=== PATIENT | male | born 1970 | race Caucasian/White ===

== ENCOUNTER 2021-04-25 19:40 | Inpatient (IN) ==
[2021-04-25] MEDS ORDERED: PIPERACILLIN/TAZOBACTAM 4.5 GM/120 ML BAG IV ONE (20:27)
[2021-04-25] MEDS ORDERED: PIPERACILL/TAZOBAC CONSULT ACTIVE PRN (20:27)
[2021-04-25] MEDS ORDERED: SODIUM CHLORIDE 0.9% 1000ML 1,000 ML IV STA (20:27)
[2021-04-25 20:47] LABS: Appearance Urine Clear (Clear); Bacteria Urine Automated Negative (Negative); Bilirubin Urine Negative (Negative); Blood Urine Trace (Negative); Cast Urine Automated 0 /lpf (0-5); Color Urine Yellow; Glucose Urine UA Negative (Negative); Ketones Urine 2+ (Negative); Leukocyte Esterase Urine 2+ (Negative); Nitrite Urine Negative (Negative); Protein Urine Negative (Negative); RBC Urine Automated 0-4 /hpf (0-4); Specific Gravity Urine 1.026 (1.000-1.030); Urobilinogen Urine Negative (Negative); pH Urine 5.5 (4.5-7.5)
[2021-04-25 20:58] LABS: Basophils # (auto) 0.03 K/uL (0-0.2); Basophils % (auto) 0.2 %; Eosinophils # (auto) 0.03 K/uL (0-0.5); Eosinophils % (auto) 0.2 %; Hematocrit (blood only) 41.9 % (42-52); Hemoglobin 14.5 g/dL (14.0-18.0); Immature Granulocytes # (auto) 0.09 K/uL (0.00-0.02); Immature Granulocytes % (auto) 0.5 %; Lymphocytes # (auto) 1.81 K/uL (1.2-3.4); Lymphocytes % (auto) 10.1 %; Mean Corpuscular Hgb Conc 34.6 g/dL (32-36); Mean Corpuscular Volume 83.8 fL (80-100); Mean Platelet Volume 9.6 fL (7.4-10.4); Monocytes # (auto) 1.57 K/uL (0.11-0.59); Monocytes % (auto) 8.8 %; Neutrophils # (auto) 14.37 K/uL (1.4-6.5); Neutrophils % (auto) 80.2 %; Platelet Count 282 K/uL (130-400); RDW Coefficient of Variation 13.3 % (11.5-14.5); RDW Standard Deviation 40.2 fL (36.4-46.3)
[2021-04-25 21:18] LABS: Albumin Globulin Ratio 1.4 (0.9-2); BUN Creatinine Ratio 10.2 (10-20); Bilirubin,Total 0.8 mg/dl (0.2-1.0); Calcium 9.5 mg/dl (8.5-10.1); Creatinine Clr Calc Pharmacy 94.4 ml/min; Est GFR (African American) 91.6 ml/min; Globulin 2.8 gm/dl (2.5-4.0); Potassium 3.5 mmol/L (3.5-5.1); Total Protein 6.8 gm/dl (6.0-8.3)
[2021-04-25] MEDS ORDERED: ONDANSETRON INJ 2 MG/ML 2 ML VIAL IV PRN (23:09)
[2021-04-25] MEDS ORDERED: HYDROmorphone INJ 0.5 MG/0.5 ML SYR IV PRN (23:09)
--- NOTE | 2021-04-25 23:24 | Emergency Department Note ---
History of Present Illness General Chief complaint: GI Assessment Stated complaint: DIVERITCULITIS PAIN, MEDS NOT WORKING Time Seen by Provider: 04/25/21 20:02 History of Present Illness Maximum Pain Intensity: 5 51-year-old male who presents to the emergency department with his for evaluation of a possible diverticular abscess seen on CT scan this afternoon. The patient reports that he developed left lower quadrant pain approximately 3 weeks ago. He was eventually seen by his PCP, who was concerned for diverticulitis. He received a prescription for both Cipro and Flagyl, however the patient misunderstood the prescription instructions, and took only 1 Cipro and Flagyl pill daily. After 3 days, he remembered his mistake, and took the usual Cipro twice daily and Flagyl 3 times daily. With persistent symptoms over the past 3 days, his PCP ordered lab work and CT imaging. The patient pulled up his medical records to show me his laboratory results, showing a white count of over 17,000. CMP appeared to be normal. An oral and IV contrast CT of the abdomen and pelvis was concerning for a sigmoid diverticular abscess with possible colovesicular fistula as there was also a small amount of air seen within the urinary bladder. The patient was referred to the emergency department for further reevaluation. The patient has not had any fever or chills over the past few days. He rates his discomfort a 5 out of 10. The patient has had a prior history of diverticulitis. Home Medications Medication Instructions Recorded Confirmed Type bupropion HCl 300 mg 24 hr tablet, 300 mg PO QAM 04/25/21 04/25/21 History extended release ciprofloxacin HCl 500 mg tablet 500 mg PO BID 04/25/21 04/25/21 History cyanocobalamin (vitamin B-12) 1,000 mcg PO DAILY 04/25/21 04/25/21 History 1,000 mcg tablet (Vitamin B-12) ergocalciferol (vitamin D2) 1,250 1,250 mcg PO WK 04/25/21 04/25/21 History mcg (50,000 unit) capsule (Vitamin D2) escitalopram oxalate 10 mg tablet 10 mg PO QAM 04/25/21 04/25/21 History metronidazole 500 mg tablet 500 mg PO BID 04/25/21 04/25/21 History Allergies Allergy/AdvReac Type Severity Reaction Status Date / Time No Known Allergies Allergy Verified 04/25/21 20:42 Past Med/Surg History Medical History Diverticulosis Gallstones Kidney stones Surgical History History of colonoscopy Social History Smoking Status: Never smoker Second Hand Exposure: No; Do You Dip or Chew Tobacco: No; Hx Alcohol Use: Yes Alcohol type: beer Hx Substance Use: No Preferred Language: Uzbek Communication Ability: Effective 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: No Beliefs That Will Affect Care: None marital status: Current Living Situation: Spouse and Family Other Information That Helps Us Care for You: No Feels Safe at Home: Yes Safety Concerns: Feels Safe At This Time Assistive Devices: None Review of Systems 10 system review was performed and was negative except for pertinent positives and negatives as indicated in history of present illness Physical Exam Vital Signs Vital Signs - 24 hr 04/25/21 19:44 04/25/21 20:50 Temperature 36.5 C Temperature Source Temporal Artery Scan Pulse Rate 108 H Pulse Rate [Finger] 98 H Respiratory Rate 16 Blood Pressure 158/87 H Blood Pressure [Right Arm] 148/87 H Blood Pressure Mean 110 Blood Pressure Mean [Right Arm] 107 Blood Pressure Position Sitting Pulse Oximetry 98 96 Oxygen Delivery Method Room Air Room Air Sepsis Recent Fever Within 48 Hours No Sepsis New/Unexplained Change in Mental Status No Sepsis Action Taken by Nursing No Action Required CONSTITUTIONAL: Healthy and well nourished. Alert and oriented X 3. Patient does not appear acutely ill or toxic. HEENT: No scleral icterus or conjunctival injection/pallor. NECK: Full active range of motion without discomfort. RESPIRATORY: Clear to auscultation bilaterally with no wheezing, crackles, rhonchi or stridor. CARDIOVASCULAR: Regular rate and rhythm with no murmurs, rubs or gallops. GASTROINTESTINAL: Bowel sounds present in all quadrants. Patient has left l ower quadrant tenderness to palpation without rigidity or rebound. Mild guarding is noted. Negative McBurney's point tenderness. Negative CVA tenderness. MUSCULOSKELETAL: Full range of motion of all joints without discomfort. Negative logroll of the left hip. INTEGUMENTARY: No rash or other significant dermatologic conditions noted. HEMATOLOGIC: No ecchymosis or petechiae. PSYCHIATRIC: Positive affect. NEUROLOGIC: No focal neurologic deficits noted. Course Course Patient history and physical exam were performed. Nurses notes were reviewed. Vital signs were reviewed, showing a mild tachycardia, otherwise the patient is afebrile. He is mildly hypertensive. After reviewing the patient's labs and CT findings, I did recommend consulting general surgery. IV access was established, and labs were redrawn for local management. The patient was administered IV Zosyn. COVID-19 test was negative. Labs were eventually resulted with a white count of 17.9, left shift and 9% bandemia. Patient is mildly hyponatremic at 135. Renal function, LFTs and lipase are normal. Urinalysis was also reviewed without obvious evidence for infection. Findings were discussed with the patient, as well as Dr. Olmos, ED attending physician, who recommended calling the general surgeon on-call and reading the CT report to them. With the patient CT being performed in the [facility] system, images are not readily available for surgical review. Based on CT reports, Dr. Jiang indicated that this would be medical management with IV antibiotics. He did request that we try to get the CT images transferred from [facility] into our PACS system. The case was then further discussed with Dr. Ferrara, [facility] hospitalist. Please see the hospitalist and surgery dictations for further treatment and final disposition. The patient refused any analgesics while under my care. He also remained hemodynamically stable. It is noted that the patient's last oral temperature prior to transfer to the floor showed an oral temperature of 37.8 C. Administered Medications Acetaminophen (Acetaminophen 325 Mg Tab) 650 mg PO Q4H PRN PRN Reason: pain/fever Stop: 05/25/21 23:08 Last Admin: 04/26/21 08:02 Dose: 650 mg Documented by: [id number] Admin: 04/25/21 23:55 Dose: 650 mg Documented by: [id number] Bupropion HCl (Bupropion Xl 300 Mg Tabcr) 300 mg PO QAM BOUBACAR Stop: 05/26/21 08:59 Last Admin: 04/26/21 08:03 Dose: 300 mg Documented by: [id number] Cyanocobalamin (Cyanocobalamin (B-12) 500 Mcg Tablet) 1,000 mcg PO DAILY BOUBACAR Stop: 05/26/21 08:59 Last Admin: 04/26/21 08:03 Dose: 1,000 mcg Documented by: [id number] Escitalopram Oxalate (Escitalopram Oxalate 10 Mg Tab) 10 mg PO QAM BOUBACAR Stop: 05/26/21 08:59 Last Admin: 04/26/21 08:03 Dose: 10 mg Documented by: [id number] Dextrose/Sodium Chloride (D5w And 1/2nss) 1,000 mls @ 125 mls/hr IV .Q8H BOUBACAR Stop: 05/25/21 23:08 Last Admin: 04/26/21 05:57 Dose: 125 mls/hr Documented by: [id number] Infusion: 04/26/21 05:57 Dose: 125 mls/hr Documented by: [id number] Admin: 04/25/21 23:55 Dose: 125 mls/hr Documented by: [id number] Piperacillin Sod/Tazobactam (Sod 3.375 gm/ Dextrose) 115 mls @ 28.75 mls/hr IV Q8H [facility]; Protocol Stop: 05/06/21 01:59 Last Infusion: 04/26/21 05:58 Dose: 0 mls/hr Documented by: [id number] Admin: 04/26/21 01:57 Dose: 28.8 mls/hr Documented by: [id number] Ondansetron HCl (Ondansetron Inj 2 Mg/Ml 2 Ml Vial) 4 mg IV Q6H PRN PRN Reason: Nausea Stop: 05/25/21 23:08 Last Admin: 04/25/21 23:55 Dose: 4 mg Documented by: [id number] Discontinued Medications Sodium Chloride (Nss 1000ml) 1,000 mls @ 999 mls/hr IV .Q1H1M STA Stop: 04/25/21 21:27 Last Infusion: 04/25/21 21:43 Dose: 0 mls/hr Documented by: [id number] Admin: 04/25/21 20:48 Dose: 999 mls/hr Documented by: [id number] Piperacillin Sod/Tazobactam Sod (Zosyn) 4.5 gm in 120 mls @ 240 mls/hr IV NOW ONE Stop: 04/25/21 20:56 Last Infusion: 04/25/21 21:34 Dose: 0 mls/hr Documented by: [id number] Admin: 04/25/21 20:48 Dose: 240 mls/hr Documented by: [id number] Medical Decision Making Medical Records Attestation: I reviewed the patient's medical records. Home Medications Current Medication List: was personally reviewed by me Laboratory Data Attestation: I reviewed the patient's lab results. Result diagrams: 04/26/21 07:39 04/26/21 07:39 Lab Results 04/25/21 04/25/21 04/25/21 Range/Units 20:30 20:30 20:45 WBC 17.90 H (4.8-10.8) K/uL RBC 5.00 (4.7-6.1) M/uL Hgb 14.5 (14.0-18.0) g/dL Hct 41.9 L (42-52) % MCV 83.8 (80-100) fL MCH 29.0 (25-34) pg MCHC 34.6 (32-36) g/dL RDW Std Deviation 40.2 (36.4-46.3) fL RDW Coeff of Lali 13.3 (11.5-14.5) % Plt Count 282 (130-400) K/uL MPV 9.6 (7.4-10.4) fL Immature Gran % (Auto) 0.5 % Neut % (Auto) 80.2 % Lymph % (Auto) 10.1 % Scott % (Auto) 8.8 % Eos % (Auto) 0.2 % Baso % (Auto) 0.2 % Neut # (Auto) 14.37 H (1.4-6.5) K/uL Lymph # (Auto) 1.81 (1.2-3.4) K/uL Scott # (Auto) 1.57 H (0.11-0.59) K/uL Eos # (Auto) 0.03 (0-0.5) K/uL Baso # (Auto) 0.03 (0-0.2) K/uL Immature Gran # (Auto) 0.09 H (0.00-0.02) K/uL Sodium (136-145) mmol/L Potassium (3.5-5.1) mmol/L Chloride (98-107) mmol/L Carbon Dioxide (21-32) mmol/L Anion Gap (3-11) BUN (6-23) mg/dl Creatinine (0.6-1.4) mg/dl Est Cr Clr Drug Dosing ml/min Est GFR ( Amer) ml/min Est GFR (Non-Af Amer) ml/min BUN/Creatinine Ratio (10-20) Glucose (70-99(Fasting)) mg/dl Calcium (8.5-10.1) mg/dl Total Bilirubin (0.2-1.0) mg/dl AST (13-39) U/L ALT (7-52) U/L Alkaline Phosphatase (34-104) U/L Total Protein (6.0-8.3) gm/dl Albumin (3.4-5.0) gm/dl Globulin (2.5-4.0) gm/dl Albumin/Globulin Ratio (0.9-2) Lipase (11-82) U/L Urine Color Yellow Urine Appearance Clear (Clear) Urine pH 5.5 (4.5-7.5) Ur Specific [place] 1.026 (1.000-1.030) Urine Protein Negative (Negative) Urine Glucose (UA) Negative (Negative) Urine Ketones 2+ H (Negative) Urine Blood Trace H (Negative) Urine Nitrite Negative (Negative) Urine Bilirubin Negative (Negative) Urine Urobilinogen Negative (Negative) Ur Leukocyte Esterase 2+ H (Negative) Urine WBC (Auto) 10-30 H (0-5) /hpf Urine RBC (Auto) 0-4 (0-4) /hpf U Hyaline Cast (Auto) 0 (0-5) /lpf U Epithel Cells (Auto) 10-20 H (0-5) /lpf Urine Bacteria (Auto) Negative (Negative) SARS-CoV-2, RNA, NAAT NEGATIVE (NEGATIVE) 04/25/21 Range/Units 20:45 WBC (4.8-10.8) K/uL RBC (4.7-6.1) M/uL Hgb (14.0-18.0) g/dL Hct (42-52) % MCV (80-100) fL MCH (25-34) pg MCHC (32-36) g/dL RDW Std Deviation (36.4-46.3) fL RDW Coeff of Lali (11.5-14.5) % Plt Count (130-400) K/uL MPV (7.4-10.4) fL Immature Gran % (Auto) % Neut % (Auto) % Lymph % (Auto) % Scott % (Auto) % Eos % (Auto) % Baso % (Auto) % Neut # (Auto) (1.4-6.5) K/uL Lymph # (Auto) (1.2-3.4) K/uL Scott # (Auto) (0.11-0.59) K/uL Eos # (Auto) (0-0.5) K/uL Baso # (Auto) (0-0.2) K/uL Immature Gran # (Auto) (0.00-0.02) K/uL Sodium 135 L (136-145) mmol/L Potassium 3.5 (3.5-5.1) mmol/L Chloride 104 (98-107) mmol/L Carbon Dioxide 25 (21-32) mmol/L Anion Gap 6 (3-11) BUN 11 (6-23) mg/dl Creatinine 1.08 (0.6-1.4) mg/dl Est Cr Clr Drug Dosing 94.4 ml/min Est GFR ( Amer) 91.6 ml/min Est GFR (Non-Af Amer) 79.0 ml/min BUN/Creatinine Ratio 10.2 (10-20) Glucose 100 H (70-99(Fasting)) mg/dl Calcium 9.5 (8.5-10.1) mg/dl Total Bilirubin 0.8 (0.2-1.0) mg/dl AST 24 (13-39) U/L ALT 40 (7-52) U/L Alkaline Phosphatase 61 (34-104) U/L Total Protein 6.8 (6.0-8.3) gm/dl Albumin 4.0 (3.4-5.0) gm/dl Globulin 2.8 (2.5-4.0) gm/dl Albumin/Globulin Ratio 1.4 (0.9-2) Lipase 17 (11-82) U/L Urine Color Urine Appearance (Clear) Urine pH (4.5-7.5) Ur Specific [place] (1.000-1.030) Urine Protein (Negative) Urine Glucose (UA) (Negative) Urine Ketones (Negative) Urine Blood (Negative) Urine Nitrite (Negative) Urine Bilirubin (Negative) Urine Urobilinogen (Negative) Ur Leukocyte Esterase (Negative) Urine WBC (Auto) (0-5) /hpf Urine RBC (Auto) (0-4) /hpf U Hyaline Cast (Auto) (0-5) /lpf U Epithel Cells (Auto) (0-5) /lpf Urine Bacteria (Auto) (Negative) SARS-CoV-2, RNA, NAAT (NEGATIVE) Imaging Data Radiologist's Impression: [facility] radiologist report was reviewed from the [facility] system, which was also read to our general surgeon. Intention is to have the patient's imaging transferred from the [facility] system to our PACS. Blood Pressure Blood Pressure Findings: Normal blood pressure MDM Narrative At this point, general surgery feels that antibiotic management is warranted, and does not feel that interventional radiology is needed. If his abscess worsens, this may be needed. Upon presentation, the patient was afebrile and normotensive. I do not suspect sepsis. Patient does have evidence for gallstones on CT imaging, however has no lab work or physical exam findings to suggest cholecystitis. Urinalysis does not show evidence for infection. Impression & Plan Abscess of sigmoid colon due to diverticulitis, Abdominal pain, acute, left lower quadrant Discharge Plan Visit Data Chief Complaint: GI Assessment Stated Complaint: DIVERITCULITIS PAIN, MEDS NOT WORKING ED Midlevel Provider: Elie Iraheta Discharge Problem: Abscess of sigmoid colon due to diverticulitis, Abdominal pain, acute, left lower quadrant Patient Disposition: Admitted As Inpatient Discharge Instructions Interventions: ED Discharge Assessment Last Done: 04/25/21 22:52
--- NOTE | 2021-04-25 23:32 | History and Physical Report ---
DATE OF ADMISSION: 04/25/2021. CHIEF COMPLAINT: Abdominal pain. HISTORY OF PRESENT ILLNESS: This is a 51-year-old male with a past medical history significant for allergic rhinitis, diverticulosis of large intestine, adjustment disorder with depression mood, history of renal calculi, history of generalized anxiety disorder, who presents with abdominal pain. The patient was getting treated for diverticulitis since last about 10 days with Cipro and Flagyl. Initially for the first 4 days, he took only half dose and since last 1 week, he has taken full dose, but his abdominal pain is not getting better, he still has 5/10 abdominal pain in the middle and left lower quadrant and yesterday he also noticed air coming out when he was micturating, that is the reason he went again to his family doctor and got a CT scan of the abdomen and pelvis which is showing acute diverticulitis of sigmoid colon with a 2.6 cm peripherally enhancing stool containing structure between and abutting the sigmoid colon and urinary bladder, possibly representing a large inflamed diverticulum or an abscess, also a small amount of air seen in the urinary bladder, which is concerning for a colovesical fistula, marked wall thickening of the superior urinary bladder, which is likely reactive from adjacent diverticulitis. The patient was advised to come to the ER. In the ER, the ER physician spoke with the general surgeon and surgery is going to evaluate in the a.m. and advised to admit to the hospital. Currently, resting comfortably and hemodynamically stable. States today he spiked fever at home and also feeling cold. He is also having diarrhea; whenever he is moving his bowels, he is having painful bowel movements. Denies any blood in stools or black stools. He is micturating a lot, but denies any pain while micturating. He did not notice any blood in the urine. No nausea or vomiting. Appetite is good, eating okay. No difficulty swallowing. No chest pain, no shortness of breath. Has some mild headache. No blurred visions, no earache, no runny nose, no sore throat, no cough. Ambulating okay. ALLERGIES: No known drug allergies. PAST MEDICAL HISTORY: As mentioned above. PAST SURGICAL HISTORY: Colonoscopy, knee arthroscopy, root canal therapy, vasectomy. MEDICATIONS: Currently the patient is on bupropion 300 mg p.o. a.m., ciprofloxacin 500 mg p.o. b.i.d., vitamin B12 1000 mcg p.o. daily, vitamin D 1250 mcg p.o. weekly, Lexapro 10 mg p.o. q.a.m., and metronidazole 500 mg p.o. b.i.d. FAMILY HISTORY: Significant for mother has arthritis, father has heart disorder, son has asthma, paternal grandmother had liver cancer, maternal, paternal grandfather had ME, maternal grandmother had eye problems. SOCIAL HISTORY: , no smoking. Alcohol socially. No drug use. REVIEW OF SYSTEMS: As per HPI. Rest of the review of systems is negative. PHYSICAL EXAMINATION: GENERAL: The patient is of moderate build, not in acute distress. VITAL SIGNS: Temperature 36.5, pulse 98, respiratory rate 16, blood pressure 148/87, oxygen 96% on room air. HEENT: Pupils equal, round and reactive to light. Oral mucosa moist. NECK: No JVD or neck masses. CARDIOVASCULAR: S1 and S2 heard. Regular rate and rhythm. No murmur, no gallop. RESPIRATORY SYSTEM: Normal AP diameter. No accessory muscle use. No wheezing, no crackles. ABDOMEN: Soft, bowel sounds sluggish. Tenderness of the abdomen in the left lower quadrant and below the umbilical region. Mild guarding, no rigidity, no distention. CENTRAL NERVOUS SYSTEM: Cranial nerves II-XII grossly intact, nonfocal. EXTREMITIES: No edema, no erythema. LABORATORY DATA: WBC 17.9, hemoglobin 14.5, hematocrit 41.9, platelets 282. Sodium 135, potassium 3.5, chloride 104, bicarb 25, BUN 11, creatinine 1.08, serum glucose 100, calcium 9.5, total bilirubin 0.8, AST 24, ALT 40, alkaline phosphatase 61, total protein 6.8. Lipase 17. Urinalysis pending. SARS-CoV-2 RNA negative. IMAGING DATA: CT of the abdomen and pelvis with IV and oral contrast done on 04/25/2021 at [facility] is showing acute diverticulitis of sigmoid colon with a 2.6 cm peripherally enhancing stool containing structure between the sigmoid colon and urinary bladder, possibly representing a large inflamed diverticulum or an abscess, marked wall thickening of the superior urinary bladder, which is likely reactive from adjacent diverticulitis. A small amount of free air is seen in the urinary bladder, which is concerning for colovesicular fistula, unless there has been a recent instrumentation of the bladder. Cholelithiasis without evidence of cholecystitis. ASSESSMENT AND PLAN: This is a 51-year-old male who presents with history of diverticulosis, who presents with diverticulitis, failed outpatient treatment. 1. Acute diverticulitis, failed outpatient treatment, and also possible colovesicular fistula, on a CAT scan today as outpatient. The patient was getting Cipro and Flagyl for the past about 10 days, but initial 4 days he took only half dose. Since about last 1 week, he is taking full dose, but it is not improving. He also noticed some air when he was micturating yesterday a couple of times. CAT scan done today is showing acute sigmoid diverticulitis and possible colovesicular fistula. ER physician talked to surgery. Currently managing conservatively with IV Zosyn, IV fluids, n.p.o., IV pain medication, IV antiemetics. Consult surgery in the a.m. for further recommendations. CAT scan done in the [employer] system report placed in the chart. Will try to get the actual images tomorrow if possible. 2. Adjustment disorder with depression mood and history of generalized anxiety disorder. Continue his home medication of bupropion and Lexapro. 3. Deep venous thrombosis prophylaxis: Will keep sequential compression devices for now in case any procedure is planned. If no procedure planned, will place him on Lovenox. DISPOSITION: Admit to medical floor. Expect to discharge home and follow with family doctor. Job ID: [id number] [facility]
[2021-04-25] MEDS: ACETAMINOPHEN 325 MG TAB PO PRN (23:55)
[2021-04-25] MEDS: D5W AND 1/2NSS 1,000 ML IV SCH (23:55)
[2021-04-26] MEDS: PIPERACILLIN/TAZOBACTAM 3.375 GM in DEXTROSE 5% 100 ML IV SCH ×3 (01:57→17:45)
[2021-04-26] MEDS: D5W AND 1/2NSS 1,000 ML IV SCH ×2 (05:57→14:14)
--- NOTE | 2021-04-26 06:26 | Surgery Consultation ---
Date of Consultation April 26, 2021 Assessment & Plan (1) Abscess of sigmoid colon due to diverticulitis: Admitted with acute diverticulitis with likely pericolonic abscess Bowel rest with ice chips only for approximately 48 hours then advance very slowly IV antibiotics May consider ID consult for future antibiotics and possible IV antibiotics at home Try to avoid urgent surgery which would likely require a colostomy Patient appears to be stable to present time History of Present Illness Attending Physician: Ghassan Redding DO History of Present Illness 51-year-old male admitted to the emergency room with acute diverticulitis He was treated as an outpatient with p.o. antibiotics but had persistent pain We do not have his CT films yet but the report says he has a pericolonic collection Which may be an abscess versus a large diverticulum adjacent to the bladder For now we will continue with bowel rest and IV antibiotics Allergies Allergy/AdvReac Type Severity Reaction Status Date / Time No Known Allergies Allergy Verified 04/25/21 20:42 Home Medications Medication Instructions Recorded Confirmed Type bupropion HCl 300 mg 24 hr tablet, 300 mg PO QAM 04/25/21 04/25/21 History extended release ciprofloxacin HCl 500 mg tablet 500 mg PO BID 04/25/21 04/25/21 History cyanocobalamin (vitamin B-12) 1,000 mcg PO DAILY 04/25/21 04/25/21 History 1,000 mcg tablet (Vitamin B-12) ergocalciferol (vitamin D2) 1,250 1,250 mcg PO WK 04/25/21 04/25/21 History mcg (50,000 unit) capsule (Vitamin D2) escitalopram oxalate 10 mg tablet 10 mg PO QAM 04/25/21 04/25/21 History metronidazole 500 mg tablet 500 mg PO BID 04/25/21 04/25/21 History Patient History Medical History Diverticulosis Gallstones Kidney stones Surgical History History of colonoscopy Social History Smoking Status: Never smoker Second Hand Exposure: No; Do You Dip or Chew Tobacco: No; Hx Alcohol Use: Yes Alcohol type: beer Hx Substance Use: No Preferred Language: Lithuanian Communication Ability: Effective Project Buyer Required: No Beliefs That Will Affect Care: None Current Living Situation: Spouse and Family Other Information That Helps Us Care for You: No Feels Safe at Home: Yes Safety Concerns: Feels Safe At This Time Assistive Devices: Glasses Review of Systems Review of Systems: All systems reviewed & are unremarkable except as noted in HPI & below Physical Exam Physical Exam: Patient is awake and alert no distress Constitutional: well developed; no acute distress Eyes: + anicteric sclerae Respiratory: normal respiratory effort; no respiratory distress Cardiovascular: Rate/Rhythm: regular rate Gastrointestinal (Abdomen): Inspection/Auscultation: abdomen not distended Abdomen is not distended Musculoskeletal: Head/Neck/Chest: head atraumatic Skin: no rashes, warm and dry Neurologic: awake Psychiatric: Orientation: alert Results & Data ([facility]) Vital Signs (Past 12 Hours) Vital Signs Temp Pulse Pulse Resp BP BP Pulse Ox 04/25/21 23:17 37.8 C H 90 16 112/70 95 04/25/21 22:45 91 H 16 137/83 95 04/25/21 20:50 98 H 148/87 H 96 04/25/21 19:44 36.5 C 108 H 16 158/87 H 98 Laboratory Results I have reviewed his laboratories Diagnostic Findings I have reviewed his imaging reports PG Care Time/CCT Total # of Minutes Spent Total Time Spent with Patient: Total time spent is greater than 50% in coordination of care (as documented) at patient's floor/unit and/or counseling patient: Coding Level of Care Code 48400 Inpt Consult Level 4 Diagnoses Abscess of sigmoid colon due to diverticulitis K57.20
[2021-04-26 07:54] LABS: Hematocrit (blood only) 39.5 % (42-52); Hemoglobin 13.4 g/dL (14.0-18.0); Mean Corpuscular Hemoglobin 28.6 pg (25-34); Mean Corpuscular Hgb Conc 33.9 g/dL (32-36); Mean Corpuscular Volume 84.2 fL (80-100); RDW Coefficient of Variation 13.4 % (11.5-14.5); RDW Standard Deviation 41.2 fL (36.4-46.3); Red Blood Count 4.69 M/uL (4.7-6.1); White Blood Count 17.49 K/uL (4.8-10.8)
[2021-04-26 07:55] LABS: Basophils # (auto) 0.02 K/uL (0-0.2); Basophils % (auto) 0.1 %; Eosinophils # (auto) 0.05 K/uL (0-0.5); Eosinophils % (auto) 0.3 %; Immature Granulocytes # (auto) 0.08 K/uL (0.00-0.02); Immature Granulocytes % (auto) 0.5 %; Lymphocytes # (auto) 1.65 K/uL (1.2-3.4); Lymphocytes % (auto) 9.4 %; Mean Platelet Volume 9.6 fL (7.4-10.4); Monocytes # (auto) 1.97 K/uL (0.11-0.59); Monocytes % (auto) 11.3 %; Neutrophils # (auto) 13.72 K/uL (1.4-6.5); Neutrophils % (auto) 78.4 %; Platelet Count 260 K/uL (130-400)
[2021-04-26] MEDS: ACETAMINOPHEN 325 MG TAB PO PRN (08:02)
[2021-04-26] MEDS: CYANOCOBALAMIN (B-12) 500 MCG TABLET PO SCH (08:03)
[2021-04-26] MEDS: buPROPion XL 300 MG TABCR PO SCH (08:03)
[2021-04-26] MEDS: ESCITALOPRAM OXALATE 10 MG TAB PO SCH (08:03)
[2021-04-26 08:27] LABS: BUN Creatinine Ratio 8.5 (10-20); Calcium 8.1 mg/dl (8.5-10.1); Creatinine Clr Calc Pharmacy 95.3 ml/min; Est GFR (African American) 93.7 ml/min; Est GFR (Non-African American) 80.9 ml/min; Potassium 3.9 mmol/L (3.5-5.1)
--- NOTE | 2021-04-26 10:54 | Hospitalist Progress Note ---
Date of Service April 26, 2021 Assessment & Plan (1) Abscess of sigmoid colon due to diverticulitis: Plan: This is a 51-year-old male who presents with history of diverticulosis, who presents with diverticulitis, failed outpatient treatment. 1. Acute diverticulitis, failed outpatient treatment, and also possible colovesicular fistula, on a CAT scan today as outpatient. The patient was getting Cipro and Flagyl for the past about 10 days, but initial 4 days he took only half dose. Since about last 1 week, he is taking full dose, but it is not improving. He also noticed some air when he was micturating yesterday a couple of times. CAT scan here is showing acute sigmoid diverticulitis and possible colovesicular fistula. ER physician talked to surgery. Currently managing conservatively with IV Zosyn, IV fluids, n.p.o., IV pain medication, IV antiemetics. Surgery on case. CAT scan done in the [facility] system report placed in the chart. 2. Adjustment disorder with depression mood and history of generalized anxiety disorder. Continue his home medication of bupropion and Lexapro. 3. Leukocytosis-Trending down 4. Deep venous thrombosis prophylaxis: Will keep sequential compression devices for now in case any procedure is planned. If no procedure planned, will place him on SC Heparin ROS-No Headache, No Visual Changes, No Nausea, No Vomiting, +Fever, +Chills, No Neck Pain or Stiffness, No Chest Pain, No Palpitations, No SOB, No JONES, No Cough, No Sputum, No Wheezing, No Abdominal Pain, No Diarrhea, No Hematemesis, No Hemoptysis, No Unexpected Weight Loss, No Flank pain, No Melena, No Hematochezia, No Frequency, No Urgency, No Burning, No Hematuria, No Rashes, No Diaphoresis. Appetite is Normal Physical Exam Gen-AAO x 3, NAD, febrile Head-NCAT, EOMI, PERRLA, Anicteric Sclera, No Posterior Pharyngeal Erythema Neck-Supple, No JVD, No Thyromegaly, No Masses, No LAD, No Bruits Lungs-Clear to Auscultation Bilaterally, No Rales, No Rhonchi, No Wheezing, No Crepitus Chest-No S4, +S1, +S2, No S3, No Murmurs, No Rubs, No Gallops, No Ectopy Abdomen-Soft, Bowel Sounds Present, Non Tender, Non Distended, No Hepatomegaly, No Splenomegaly, No Palpable Masses, No Rebound, No Rigidity, No Guarding Musculoskeletal-Full Range of Motion Bilaterally, No CVAT Extremities-No Cyanosis, No Clubbing, No Edema Nuero-Cranial Nerves II-XII grossly intact, Motor WNL, DTRs WNL, Strength WNL, Non Focal Psych-Normal Mood. Admission and Anticipated Discharge Date Admission Date: April 25, 2021 Subjective Patient seen, feels a little better, c/o Fever and Chills, Abd pain gone Results & Data Results & Data ([facility]) Vital Signs (Past 12 Hours) Vital Signs Temp Pulse Pulse Resp BP BP Pulse Ox 04/26/21 07:59 37 C 83 16 113/70 96 04/25/21 23:17 37.8 C H 90 16 112/70 95
[2021-04-27] MEDS: D5W AND 1/2NSS 1,000 ML IV SCH ×2 (00:07→06:15)
[2021-04-27] MEDS: PIPERACILLIN/TAZOBACTAM 3.375 GM in DEXTROSE 5% 100 ML IV SCH ×3 (02:18→18:03)
--- NOTE | 2021-04-27 07:24 | Surgery Progress Note ---
Date of Service April 27, 2021 Assessment & Plan (1) Abscess of sigmoid colon due to diverticulitis: Plan: Patient appears to be improving I would continue with limited p.o. for now and give him some clear liquids for dinner Continue on IV antibiotics May consider repeating his CAT scan tomorrow or Wednesday depending on his progress Would not discharge him home too early as he is already failed oral antibiotics May consider an ID consult-May need home IV antibiotics Admission and Anticipated Discharge Date Admission Date: April 25, 2021 Subjective Patient up out of bed Feeling somewhat better Vital signs are stable Review of Systems Review of Systems: All systems reviewed & are unremarkable except as noted in HPI & below Physical Exam Physical Exam: Patient is awake and alert no distress Abdomen is nondistended, less tenderness Constitutional: well developed; no acute distress Eyes: + anicteric sclerae Respiratory: normal respiratory effort; no respiratory distress Cardiovascular: Rate/Rhythm: regular rate Gastrointestinal (Abdomen): Inspection/Auscultation: abdomen not distended Abdomen is not distended Musculoskeletal: Head/Neck/Chest: head atraumatic Skin: no rashes, warm and dry Neurologic: awake Psychiatric: Orientation: alert Results & Data ([facility]) Vital Signs (Past 12 Hours) Vital Signs Temp Pulse Resp BP Pulse Ox 04/26/21 22:14 37.2 C 80 15 147/84 H 96 PG Care Time/CCT Total # of Minutes Spent Total Time Spent with Patient: Total time spent is greater than 50% in coordination of care (as documented) at patient's floor/unit and/or counseling patient: Coding Level of Care Code 32692 Inpt Consult Level 3 Diagnoses Abscess of sigmoid colon due to diverticulitis K57.20
[2021-04-27 08:25] LABS: Hemoglobin 13.9 g/dL (14.0-18.0); Mean Corpuscular Hemoglobin 28.5 pg (25-34); Mean Corpuscular Hgb Conc 33.9 g/dL (32-36); Mean Platelet Volume 9.7 fL (7.4-10.4); Platelet Count 282 K/uL (130-400); RDW Coefficient of Variation 13.3 % (11.5-14.5); RDW Standard Deviation 40.4 fL (36.4-46.3); Red Blood Count 4.88 M/uL (4.7-6.1); White Blood Count 9.86 K/uL (4.8-10.8)
[2021-04-27 08:48] LABS: BUN Creatinine Ratio 5.9 (10-20); Calcium 8.4 mg/dl (8.5-10.1); Creatinine Clr Calc Pharmacy 99.1 ml/min; Est GFR (African American) 98.2 ml/min; Est GFR (Non-African American) 84.7 ml/min; Potassium 3.3 mmol/L (3.5-5.1)
[2021-04-27] MEDS: CYANOCOBALAMIN (B-12) 500 MCG TABLET PO SCH (11:13)
[2021-04-27] MEDS: ESCITALOPRAM OXALATE 10 MG TAB PO SCH (11:13)
[2021-04-27] MEDS: buPROPion XL 300 MG TABCR PO SCH (11:13)
--- NOTE | 2021-04-27 11:38 | Hospitalist Progress Note ---
Date of Service April 27, 2021 Assessment & Plan (1) Abscess of sigmoid colon due to diverticulitis: Plan: This is a 51-year-old male who presents with history of diverticulosis, who presents with diverticulitis, failed outpatient treatment. 1. Acute diverticulitis, failed outpatient treatment, and also possible colovesicular fistula, on a CAT scan today as outpatient. The patient was getting Cipro and Flagyl for the past about 10 days, but initial 4 days he took only half dose. Since about last 1 week, he is taking full dose, but it is not improving. He also noticed some air when he was micturating yesterday a couple of times. CAT scan here is showing acute sigmoid diverticulitis and possible colovesicular fistula. ER physician talked to surgery. Currently managing conservatively with IV Zosyn, IV fluids, n.p.o., IV pain medication, IV antiemetics. Surgery on case. CAT scan done in the [employer] system report placed in the chart. 2. Adjustment disorder with depression mood and history of generalized anxiety disorder. Continue his home medication of bupropion and Lexapro. 3. Leukocytosis-Trending down 4. Deep venous thrombosis prophylaxis: Will keep sequential compression devices for now in case any procedure is planned. If no procedure planned, will place him on SC Heparin Continue Bowel Rest, repeat CT in AM ROS-No Headache, No Visual Changes, No Nausea, No Vomiting, +Fever, +Chills, No Neck Pain or Stiffness, No Chest Pain, No Palpitations, No SOB, No JONES, No Cough, No Sputum, No Wheezing, No Abdominal Pain, No Diarrhea, No Hematemesis, No Hemoptysis, No Unexpected Weight Loss, No Flank pain, No Melena, No Hematochezia, No Frequency, No Urgency, No Burning, No Hematuria, No Rashes, No Diaphoresis. Appetite is Normal Physical Exam Gen-AAO x 3, NAD, febrile Head-NCAT, EOMI, PERRLA, Anicteric Sclera, No Posterior Pharyngeal Erythema Neck-Supple, No JVD, No Thyromegaly, No Masses, No LAD, No Bruits Lungs-Clear to Auscultation Bilaterally, No Rales, No Rhonchi, No Wheezing, No Crepitus Chest-No S4, +S1, +S2, No S3, No Murmurs, No Rubs, No Gallops, No Ectopy Abdomen-Soft, Bowel Sounds Present, Non Tender, Non Distended, No Hepatomegaly, No Splenomegaly, No Palpable Masses, No Rebound, No Rigidity, No Guarding Musculoskeletal-Full Range of Motion Bilaterally, No CVAT Extremities-No Cyanosis, No Clubbing, No Edema Nuero-Cranial Nerves II-XII grossly intact, Motor WNL, DTRs WNL, Strength WNL, Non Focal Psych-Normal Mood. Admission and Anticipated Discharge Date Admission Date: April 25, 2021 Subjective Feeling somewhat better, discussed reason for NPO Results & Data Results & Data ([facility]) Vital Signs (Past 12 Hours) Vital Signs Temp Pulse Resp BP Pulse Ox 04/27/21 07:31 36.4 C L 64 18 128/82 97
[2021-04-27] MEDS ORDERED: NSS + 20MEQ KCL 20 MEQ/1,000 ML BAG IV SCH (11:45)
[2021-04-27] MEDS: POTASSIUM CHLORIDE CRTAB 20 MEQ TABCR PO SCH ×2 (12:43→20:54)
[2021-04-27] MEDS: SODIUM CHLOR 0.45% + 20MEQ KCL 20 MEQ/1,000 ML BAG IV SCH ×2 (12:43→20:17)
--- NOTE | 2021-04-27 16:13 | Surgery Progress Note ---
Date of Service April 27, 2021 Assessment & Plan (1) Abscess of sigmoid colon due to diverticulitis: Plan: Patient is experiencing pneumaturia which I somewhat expected in this situation with the type of infection he has adjacent to the bladder. He likely has a small colovesical fistula The plan is to treat the current infection as we would with diverticulitis with contained infection and then plan on having the patient See colorectal surgery as an outpatient either at [facility] where they [facility] surgeons who come to [place] The hope would be possible resection with minimally invasive surgery/robotics Admission and Anticipated Discharge Date Admission Date: April 25, 2021 Results & Data ([facility]) Vital Signs (Past 12 Hours) Vital Signs Temp Pulse Resp BP Pulse Ox 04/27/21 15:32 36.6 C 71 16 128/82 97 04/27/21 07:31 36.4 C L 64 18 128/82 97 PG Care Time/CCT Total # of Minutes Spent Total Time Spent with Patient: Total time spent is greater than 50% in coordination of care (as documented) at patient's floor/unit and/or counseling patient: Coding Level of Care Code None Diagnoses Abscess of sigmoid colon due to diverticulitis K57.20
[2021-04-28] MEDS: PIPERACILLIN/TAZOBACTAM 3.375 GM in DEXTROSE 5% 100 ML IV SCH ×3 (01:46→17:38)
[2021-04-28] MEDS: SODIUM CHLOR 0.45% + 20MEQ KCL 20 MEQ/1,000 ML BAG IV SCH ×3 (03:44→19:59)
--- NOTE | 2021-04-28 06:46 | Surgery Progress Note ---
Date of Service April 28, 2021 Assessment & Plan (1) Abscess of sigmoid colon due to diverticulitis: Plan: Patient stable with diverticulitis now with some pneumaturia Likely colovesical fistula which is not unexpected We will try to discuss his case with the colorectal surgeons from [facility] They can possibly see a January LOPEZ consult in for possible home IV antibiotics and antibiotic suggestions Continue on clear liquids Admission and Anticipated Discharge Date Admission Date: April 25, 2021 Subjective Patient stable Some pneumaturia Likely colovesical fistula Review of Systems Review of Systems: All systems reviewed & are unremarkable except as noted in HPI & below Physical Exam Physical Exam: Patient is awake and alert no distress Abdomen is nondistended, less tenderness Constitutional: well developed; no acute distress Eyes: + anicteric sclerae Respiratory: normal respiratory effort; no respiratory distress Cardiovascular: Rate/Rhythm: regular rate Gastrointestinal (Abdomen): Inspection/Auscultation: abdomen not distended Abdomen is not distended Musculoskeletal: Head/Neck/Chest: head atraumatic Skin: no rashes, warm and dry Neurologic: awake Psychiatric: Orientation: alert Results & Data ([facility]) Vital Signs (Past 12 Hours) Vital Signs Temp Pulse Resp BP Pulse Ox 04/28/21 01:50 36.5 C 04/27/21 22:11 36.7 C 71 16 130/81 95 PG Care Time/CCT Total # of Minutes Spent Total Time Spent with Patient: Total time spent is greater than 50% in coordination of care (as documented) at patient's floor/unit and/or counseling patient: Coding Level of Care Code 59129 Inpt Consult Level 3 Diagnoses Abscess of sigmoid colon due to diverticulitis K57.20
--- NOTE | 2021-04-28 06:49 | Electrocardiogram Report ---
Test Reason : Blood Pressure : / mmHG Vent. Rate : 067 BPM Atrial Rate : 067 BPM P-R Int : 180 ms QRS Dur : 094 ms QT Int : 418 ms P-R-T Axes : -03 015 042 degrees QTc Int : 441 ms Poor data quality, interpretation may be adversely affected Sinus rhythm Otherwise normal ECG When compared with ECG of 15-Aug-2014 12:02, No significant change Confirmed by Morgan Reina ([id number]) on 04/28/2021 6:49:15 AM Referred By: REFERRED SELF Confirmed By:Morgan Reina
[2021-04-28] MEDS ORDERED: TPN/PPN CONSULT PHARMACY STA (08:51)
[2021-04-28] MEDS ORDERED: TPN/PPN CONSULT PHARMACY PRN (08:53)
[2021-04-28] MEDS ORDERED: ERGOCALCIFEROL 50,000 UNITS 1250 MCG CAP PO SCH (09:00)
[2021-04-28 10:18] LABS: BUN Creatinine Ratio 5.9 (10-20); Bilirubin,Total 0.5 mg/dl (0.2-1.0); Calcium 9.2 mg/dl (8.5-10.1); Creatinine Clr Calc Pharmacy 98.4 ml/min; Est GFR (African American) 99.4 ml/min; Est GFR (Non-African American) 85.7 ml/min; Magnesium 2.1 mg/dl (1.7-2.4); Phosphorus 1.7 mg/dl (2.5-4.9); Potassium 3.8 mmol/L (3.5-5.1)
[2021-04-28] MEDS ORDERED: POTASSIUM PHOSPHATE 21 MMOL in SODIUM CHLORIDE 0.9% 500 ML IV ONE (11:00)
[2021-04-28] MEDS ORDERED: OPTIRAY 320 100ml IV ONE (11:05)
[2021-04-28] MEDS: POTASSIUM CHLORIDE CRTAB 20 MEQ TABCR PO SCH ×2 (11:37→21:35)
[2021-04-28] MEDS: CYANOCOBALAMIN (B-12) 500 MCG TABLET PO SCH (11:37)
[2021-04-28] MEDS: buPROPion XL 300 MG TABCR PO SCH (11:37)
[2021-04-28] MEDS: ESCITALOPRAM OXALATE 10 MG TAB PO SCH (13:57)
--- NOTE | 2021-04-28 14:16 | CT Scan Report ---
CT abd pelvis oral and IV con CLINICAL HISTORY: Colovesicular Fistula and Diverticulitis TECHNIQUE: Helical axial images of the abdomen and pelvis were obtained and displayed. Automated dose lowering techniques and/or adjustment according to patient size were utilized for this exam. This e xam was performed with intravenous contrast. COMPARISON: Comparison is made to CT abdomen pelvis 08/15/2014 FINDINGS: Lower chest: Bibasilar atelectasis versus scarring is seen. Liver: Unremarkable. No focal lesions are seen. Gallbladder and biliary tree: Cholelithiasis is seen without evidence of cholecystitis. No intra- or extrahepatic biliary ductal dilation. Pancreas: Unremarkable, no focal lesions. Spleen: Unremarkable. Adrenals: Unremarkable. Kidneys and ureters: Unremarkable. Bladder: Bladder wall thickening is seen in the superior wall near the site of the fistula. There is a focus of gas in the bladder likely due to bowel connection. Reproductive organs: Unremarkable. Bowel: Diverticulitis is seen in the sigmoid colon. There is a markedly focus of inflammation adjacen t to the bowel with a colovesicular fistula seen. The appendix is normal. Lymph nodes Retroperitoneal: Unremarkable. Mesenteric: Unremarkable. Pelvic: Unremarkable. Peritoneum: Normal. Vessels: Unremarkable. Abdominal wall: A fat-containing umbilical hernia is seen. There is a left fat-containing inguinal he rnia. Bones: Unremarkable. 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 A focus of gas is seen in the bladder likely secondary to enteric connection. ACT 112: Negative or not required by law. Electronically signed by: Bj Hunter M.D. 04/28/2021 2:15 PM
[2021-04-29] MEDS: PIPERACILLIN/TAZOBACTAM 3.375 GM in DEXTROSE 5% 100 ML IV SCH ×3 (02:07→18:00)
[2021-04-29] MEDS: SODIUM CHLOR 0.45% + 20MEQ KCL 20 MEQ/1,000 ML BAG IV SCH ×2 (02:08→12:00)
[2021-04-29 06:17] LABS: Hemoglobin 13.9 g/dL (14.0-18.0); Mean Corpuscular Hemoglobin 28.5 pg (25-34); Mean Corpuscular Hgb Conc 33.9 g/dL (32-36); Mean Corpuscular Volume 84.2 fL (80-100); Mean Platelet Volume 9.7 fL (7.4-10.4); Platelet Count 324 K/uL (130-400); RDW Coefficient of Variation 13.3 % (11.5-14.5); RDW Standard Deviation 40.9 fL (36.4-46.3); Red Blood Count 4.87 M/uL (4.7-6.1); White Blood Count 6.15 K/uL (4.8-10.8)
[2021-04-29 06:47] LABS: Albumin Globulin Ratio 1.1 (0.9-2); Albumin Level 3.6 gm/dl (3.4-5.0); Bilirubin,Total 0.5 mg/dl (0.2-1.0); Calcium 8.4 mg/dl (8.5-10.1); Creatinine Clr Calc Pharmacy 98.9 ml/min; Est GFR (African American) 100.6 ml/min; Est GFR (Non-African American) 86.8 ml/min; Globulin 3.2 gm/dl (2.5-4.0); Magnesium 2.1 mg/dl (1.7-2.4); Phosphorus 3.6 mg/dl (2.5-4.9); Potassium 4.1 mmol/L (3.5-5.1); Total Protein 6.8 gm/dl (6.0-8.3)
[2021-04-29] MEDS: buPROPion XL 300 MG TABCR PO SCH (08:29)
[2021-04-29] MEDS: CYANOCOBALAMIN (B-12) 500 MCG TABLET PO SCH (08:29)
[2021-04-29] MEDS: POTASSIUM CHLORIDE CRTAB 20 MEQ TABCR PO SCH ×2 (08:29→21:29)
[2021-04-29] MEDS: ESCITALOPRAM OXALATE 10 MG TAB PO SCH (08:29)
--- NOTE | 2021-04-29 09:56 | Surgery Progress Note ---
Date of Service April 29, 2021 Assessment & Plan (1) Abscess of sigmoid colon due to diverticulitis: Plan: Patient also with colovesical fistula/pneumaturia Beginning TPN for 1 to 2 days Continue clear liquids Suggestions from ID are IV antibiotics for 4 to [address] line in place Last my office to check on his appointment with colorectal surgery at [facility] Admission and Anticipated Discharge Date Admission Date: April 25, 2021 Subjective Patient awake and alert Afebrile Vital signs stable No acute changes Review of Systems Review of Systems: All systems reviewed & are unremarkable except as noted in HPI & below Physical Exam Physical Exam: Patient is awake and alert no distress Abdomen is nondistended, less tenderness Constitutional: well developed; no acute distress Eyes: + anicteric sclerae Respiratory: normal respiratory effort; no respiratory distress Cardiovascular: Rate/Rhythm: regular rate Gastrointestinal (Abdomen): Inspection/Auscultation: abdomen not distended Abdomen is not distended Musculoskeletal: Head/Neck/Chest: head atraumatic Skin: no rashes, warm and dry Neurologic: awake Psychiatric: Orientation: alert Results & Data ([facility]) Vital Signs (Past 12 Hours) Vital Signs Temp Pulse Pulse Resp BP Pulse Ox 04/29/21 07:19 36.6 C 78 18 121/73 99 04/28/21 23:58 36.3 C L 78 16 134/84 95 PG Care Time/CCT Total # of Minutes Spent Total Time Spent with Patient: Total time spent is greater than 50% in coordination of care (as documented) at patient's floor/unit and/or counseling patient: Coding Level of Care Code 68471 Inpt Consult Level 3 Diagnoses Abscess of sigmoid colon due to diverticulitis K57.20
[2021-04-29] MEDS: ENOXAPARIN INJ 40 MG/0.4 ML SYR SQ SCH (10:16)
[2021-04-29] MEDS ORDERED: DEXTROSE 10% 1,000 ML IV PRN (10:34)
--- NOTE | 2021-04-29 12:09 | Hospitalist Progress Note ---
Date of Service April 29, 2021 Assessment & Plan (1) Abscess of sigmoid colon due to diverticulitis: Plan: This is a 51-year-old male who presents with history of diverticulosis, who presents with diverticulitis, failed outpatient treatment. 1. Acute diverticulitis, failed outpatient treatment, and also possible colovesicular fistula, on a CAT scan today as outpatient. The patient was getting Cipro and Flagyl for the past about 10 days, but initial 4 days he took only half dose. Since about last 1 week, he is taking full dose, but it is not improving. He also noticed some air when he was micturating yesterday a couple of times. CAT scan here is showing acute sigmoid diverticulitis and possible colovesicular fistula. ER physician talked to surgery. IV Zosyn 4-6 weeks then surgery 2. Adjustment disorder with depression mood and history of generalized anxiety disorder. Continue his home medication of bupropion and Lexapro. 3. Leukocytosis-Trending down 4. Deep venous thrombosis prophylaxis: Will keep sequential compression devices for now in case any procedure is planned. If no procedure planned, SC Heparin Clears, IV Abx, Surgery after Abx ROS-No Headache, No Visual Changes, No Nausea, No Vomiting, +Fever, +Chills, No Neck Pain or Stiffness, No Chest Pain, No Palpitations, No SOB, No JONES, No Cough, No Sputum, No Wheezing, No Abdominal Pain, No Diarrhea, No Hematemesis, No Hemoptysis, No Unexpected Weight Loss, No Flank pain, No Melena, No H ematochezia, No Frequency, No Urgency, No Burning, No Hematuria, No Rashes, No Diaphoresis. Appetite is Normal Physical Exam Gen-AAO x 3, NAD, afebrile Head-NCAT, EOMI, PERRLA, Anicteric Sclera, No Posterior Pharyngeal Erythema Neck-Supple, No JVD, No Thyromegaly, No Masses, No LAD, No Bruits Lungs-Clear to Auscultation Bilaterally, No Rales, No Rhonchi, No Wheezing, No Crepitus Chest-No S4, +S1, +S2, No S3, No Murmurs, No Rubs, No Gallops, No Ectopy Abdomen-Soft, Bowel Sounds Present, Non Tender, Non Distended, No Hepatomegaly, No Splenomegaly, No Palpable Masses, No Rebound, No Rigidity, No Guarding Musculoskeletal-Full Range of Motion Bilaterally, No CVAT Extremities-No Cyanosis, No Clubbing, No Edema Nuero-Cranial Nerves II-XII grossly intact, Motor WNL, DTRs WNL, Strength WNL, Non Focal Psych-Normal Mood. Admission and Anticipated Discharge Date Admission Date: April 25, 2021 Subjective Patient see, I went over case with him and plan Results & Data Results & Data ([facility]) Vital Signs (Past 12 Hours) Vital Signs Temp Pulse Resp BP Pulse Ox 04/29/21 07:19 36.6 C 78 18 121/73 99
--- NOTE | 2021-04-29 14:49 | Pharmacy Report ---
Pharmacy PN Initial Consult - Date of Service April 29, 2021 - Scope Pharmacy has been consulted to manage parenteral nutrition orders and order appropriate labs. As part of the Nutrition Support Team guidelines, pharmacy will work in conjunction with dietary when determining the patients caloric needs. - Subjective The patient is a 51 year old M admitted on 04/25/21 21:56 for ABDOMINAL PAIN. Patient is to receive parenteral nutrition for acute diverticulitis w/ possible colvesicular fistula/pneumaturia. Prolonged NPO. - Objective Height: 5 ft 9 in Weight: 93.9 kg Intake & Output (Last 24Hrs): Intake & Output 04/27/21 04/28/21 04/29/21 04/30/21 06:59 06:59 06:59 06:59 Intake Total 3111.667 / 3111.667 3309.584 / 3309.584 3214.083 / 3214.083 1230 / 1230 Output Total 1600 / 1600 980 / 980 2600 / 2600 725 / 725 Balance 1511.667 / 1256.282 3611.584 / 2329.584 614.083 / 614.083 505 / 505 Weight 95 kg 93.9 kg Laboratory Data (Last 24 Hrs):: 04/28/21 04/29/21 19:24 05:28 Sodium 138 Potassium 4.1 Chloride 108 H Carbon Dioxide 23 BUN 5 L Creatinine 1.00 Glucose 86 Calcium 8.4 L Phosphorus 2.9 D 3.6 Magnesium 2.1 Total Bilirubin 0.5 AST 23 ALT 36 Alkaline Phosphatase 54 Albumin 3.6 Nutrition Assessment:: Please refer to the Notes section of the EMR for the most recent repairer controller tester note. - Assessment * MH is a 51 year old male with acute diverticulitis (failed outpatient tr eatment) w colovesicular fistula/pneumaturia * Provider would like short-term TPN, as patient not advancing past clears * Discussed use of dextrose-containing IV fluids since short-term need is anticipated, TPN preferred by providers at this time * PICC line placed yesterday due to long-term need for IV antibiotics * Will utilize PICC line for central TPN administration * Macronutrient recs provided by sales data analyst * Discussed desired volume with provider, will aim for ~100-110 mL/hr * Phosphate repleted yesterday, 1.7 -> 3.6 mg/dL * Electrolytes largely normal/stable, chloride elevated - will utilize half normal saline in addition to TPN to meet desired volume - Plan For day 1 of PN administration, the following will be ordered: Macronutrients Amino acids 58 grams/day Dextrose 101 grams/day Lipids 50 grams/day Micronutrients Combined electrolytes 20 mL - contains 35 mEq Na, 20 meq K, 4.5 mEq Ca, 5 mEq Mg, 35 mEq Cl, 29.5 mEq acetate per 20 mL Sodium phosphate 30 MMol Potassium chloride 20 mEq Potassium acetate 40 mEq Multivitamins 10 mL Trace Elements 10 mL Additional additives: thiamine 100 mg, folic acid 1 mg Total volume 792 mL to be infused over 24 hrs will provide 573 kcal/day Labs to be ordered per PN order protocol Pharmacy will follow and adjust parenteral nutrition orders on a daily basis. Thank you.
[2021-04-29] MEDS: SODIUM CHLORIDE 0.45 % 1,000 ML IV SCH (16:00)
[2021-04-29] MEDS ORDERED: [UNRECOGNIZED DRUG - OTHER] IV SCH (16:00)
[2021-04-29] MEDS ORDERED: CLINOLIPID 20% IV FAT EMULSION 250 ML IV SCH (16:00)
[2021-04-29] MEDS ORDERED: CENTRAL TPN IV SCH (16:00)
[2021-04-29] MEDS ORDERED: AMINO ACID 8% IV SCH (16:00)
[2021-04-30] MEDS: PIPERACILLIN/TAZOBACTAM 3.375 GM in DEXTROSE 5% 100 ML IV SCH ×2 (01:18→11:03)
[2021-04-30] MEDS: SODIUM CHLORIDE 0.45 % 1,000 ML IV SCH (05:10)
[2021-04-30 06:22] LABS: Hematocrit (blood only) 41.6 % (42-52); Hemoglobin 14.2 g/dL (14.0-18.0); Mean Corpuscular Hemoglobin 28.6 pg (25-34); Mean Corpuscular Hgb Conc 34.1 g/dL (32-36); Mean Corpuscular Volume 83.9 fL (80-100); Mean Platelet Volume 9.6 fL (7.4-10.4); Platelet Count 273 K/uL (130-400); RDW Coefficient of Variation 13.2 % (11.5-14.5); Red Blood Count 4.96 M/uL (4.7-6.1); White Blood Count 8.92 K/uL (4.8-10.8)
[2021-04-30 06:42] LABS: Albumin Globulin Ratio 1.1 (0.9-2); Albumin Level 3.6 gm/dl (3.4-5.0); BUN Creatinine Ratio 7.7 (10-20); Bilirubin,Total 0.6 mg/dl (0.2-1.0); Calcium 9.2 mg/dl (8.5-10.1); Creatinine Clr Calc Pharmacy 108.3 ml/min; Est GFR (African American) 112.7 ml/min; Est GFR (Non-African American) 97.2 ml/min; Globulin 3.2 gm/dl (2.5-4.0); Phosphorus 3.5 mg/dl (2.5-4.9); Potassium 3.9 mmol/L (3.5-5.1); Total Protein 6.8 gm/dl (6.0-8.3)
--- NOTE | 2021-04-30 07:49 | Surgery Progress Note ---
Date of Service April 30, 2021 Assessment & Plan (1) Abscess of sigmoid colon due to diverticulitis: Plan: Acute complicated diverticulitis with colovesical fistula Currently on TPN-we will continue this today Try him on a low fiber diet Plan for home IV antibiotics-possible discharge tomorrow Having loose bowel movements, likely from colonic irritation His initial C. difficile was negative Working on follow-up with colorectal surgery at [facility] Admission and Anticipated Discharge Date Admission Date: April 25, 2021 Subjective Afebrile vital signs stable Loose bowel movements Currently on TPN We will try to advance his diet Review of Systems Review of Systems: All systems reviewed & are unremarkable except as noted in HPI & below Physical Exam Physical Exam: Patient is awake and alert no distress Abdomen is nondistended, less tenderness Constitutional: well developed; no acute distress Eyes: + anicteric sclerae Respiratory: normal respiratory effort; no respiratory distress Cardiovascular: Rate/Rhythm: regular rate Gastrointestinal (Abdomen): Inspection/Auscultation: abdomen not distended Abdomen is not distended Musculoskeletal: Head/Neck/Chest: head atraumatic Skin: no rashes, warm and dry Neurologic: awake Psychiatric: Orientation: alert Results & Data ([facility]) Vital Signs (Past 12 Hours) Vital Signs Temp Pulse Resp BP Pulse Ox 04/29/21 22:45 36.6 C 71 14 151/93 H 97 PG Care Time/CCT Total # of Minutes Spent Total Time Spent with Patient: Total time spent is greater than 50% in coordination of care (as documented) at patient's floor/unit and/or counseling patient: Coding Level of Care Code 71167 Inpt Consult Level 3 Diagnoses Abscess of sigmoid colon due to diverticulitis K57.20
[2021-04-30] MEDS: buPROPion XL 300 MG TABCR PO SCH (09:14)
[2021-04-30] MEDS: POTASSIUM CHLORIDE CRTAB 20 MEQ TABCR PO SCH ×2 (09:15→20:31)
[2021-04-30] MEDS: ESCITALOPRAM OXALATE 10 MG TAB PO SCH (09:15)
[2021-04-30] MEDS: CYANOCOBALAMIN (B-12) 500 MCG TABLET PO SCH (09:15)
[2021-04-30] MEDS: ENOXAPARIN INJ 40 MG/0.4 ML SYR SQ SCH (09:16)
[2021-04-30] MEDS ORDERED: AMINO ACID 8% IV SCH (16:00)
[2021-04-30] MEDS ORDERED: [UNRECOGNIZED DRUG - OTHER] IV SCH (16:00)
[2021-04-30] MEDS ORDERED: CENTRAL TPN IV SCH (16:00)
[2021-04-30] MEDS ORDERED: CLINOLIPID 20% IV FAT EMULSION 250 ML IV SCH (16:00)
[2021-04-30] MEDS: ERTAPENEM SODIUM 1,000 MG in SYRINGE 0 ML IV SCH (18:05)
--- NOTE | 2021-04-30 18:57 | Hospitalist Progress Note ---
Date of Service April 30, 2021 Assessment & Plan (1) Abscess of sigmoid colon due to diverticulitis: Plan: Present on admission with worsening abdominal pain after failing outpatient diverticulitis Acute diverticulitis CT abd/pelvis showed Cholecystic fistula is seen with inflammation about the bladder wall and sigmoid colon compatible with diverticulitis. A focus of gas is seen in the bladder likely secondary to enteric connection. Failed outpatient treatment with flagyl and cipro (but initial 4 days he took only half dose) Surgery on board Continue conservative management Currently on IV Zosyn, will transition to Ertapenem WBC normalized ID on board recommended transition to IV ertapenem or IV rocephin with flagyl for 4 to 6 weeks Currently on TPN-we will continue this today as per surgery Tolerated low fiber diet will d/c IVF Will needfollow-up with colorectal surgery at [facility] for Ertapenem given to case management Adjustment disorder with depression mood and history of generalized anxiety disorder. Continue his home medication of bupropion and Lexapro. UTI Urine cx grew E-Coli Continue IV Zosyn for now WBC normalized Deep venous thrombosis prophylaxis on Lovenox Code status Full code Admission and Anticipated Discharge Date Admission Date: April 25, 2021 Subjective Pt was seen and examined for follow of abdominal pain due to diverticulitis Lying in bed with no acute distress Pt said that pain improves significantly Pt said that she tolerated low fiber diet Denies any chest pain, palpitation, dizziness and SOB Review of Systems Review of Systems: All systems reviewed & are unremarkable except as noted in Subjective Physical Exam Physical Exam: General- No acute distress Head- atraumatic Eyes- PERRL, EOMI, ENT- oropharynx clear Neck- supple, no JVD Lungs- clear to auscultation Heart- regular rhythm; no murmur Abdomen- normal bowel sounds, soft,+tender with deep palpation Extremities- no calf tenderness Neuro- alert, oriented x 3; PERRL, EOMI; no facial palsy; no dysarthria Skin- warm & dry Results & Data Results & Data ([facility]) Vital Signs (Past 12 Hours) Vital Signs Temp Pulse Resp BP Pulse Ox 04/30/21 16:00 36.5 C 91 H 18 149/83 H 97 04/30/21 07:30 36.6 C 77 16 115/75 97 04/30/21 07:00 36.6 C 77 16 115/75 97
[2021-04-30] MEDS ORDERED: STOP CLINOLIPID ONE (22:00)
--- NOTE | 2021-05-01 07:15 | Surgery Progress Note ---
Date of Service May 01, 2021 Assessment & Plan (1) Abscess of sigmoid colon due to diverticulitis: Plan: Patient with colovesical fistula PICC line in place on IV ertapenem IV antibiotics to be continued at home for 4 to 6 weeks per ID from [facility] Patient to be followed up with colorectal surgery at [facility]-checking on appointment He apparently has an appointment with Dr. Plummer next week but the colorectal appointment is very important Probable discharge home today Admission and Anticipated Discharge Date Admission Date: April 25, 2021 Subjective Very good night Much less frequent bowel movements On low fiber diet Review of Systems Review of Systems: All systems reviewed & are unremarkable except as noted in HPI & below Physical Exam Physical Exam: Patient is awake and alert no distress Abdomen is nondistended, less tenderness Constitutional: well developed; no acute distress Eyes: + anicteric sclerae Respiratory: normal respiratory effort; no respiratory distress Cardiovascular: Rate/Rhythm: regular rate Gastrointestinal (Abdomen): Inspection/Auscultation: abdomen not distended Abdomen is not distended Musculoskeletal: Head/Neck/Chest: head atraumatic Skin: no rashes, warm and dry Neurologic: awake Psychiatric: Orientation: alert Results & Data ([facility]) Vital Signs (Past 12 Hours) Vital Signs Temp Pulse Resp BP Pulse Ox 04/30/21 22:27 36.2 C L 70 18 131/86 97 PG Care Time/CCT Total # of Minutes Spent Total Time Spent with Patient: Total time spent is greater than 50% in coordination of care (as documented) at patient's floor/unit and/or counseling patient: Coding Level of Care Code 74901 Inpt Consult Level 3 Diagnoses Abscess of sigmoid colon due to diverticulitis K57.20
[2021-05-01] MEDS: ENOXAPARIN INJ 40 MG/0.4 ML SYR SQ SCH (09:03)
[2021-05-01] MEDS: CYANOCOBALAMIN (B-12) 500 MCG TABLET PO SCH (09:04)
[2021-05-01] MEDS: ESCITALOPRAM OXALATE 10 MG TAB PO SCH (09:04)
[2021-05-01] MEDS: buPROPion XL 300 MG TABCR PO SCH (09:04)
[2021-05-01] MEDS: POTASSIUM CHLORIDE CRTAB 20 MEQ TABCR PO SCH (09:04)
[2021-05-01] MEDS: ERTAPENEM SODIUM 1,000 MG in SYRINGE 0 ML IV SCH (13:33)
--- NOTE | 2021-05-01 13:46 | Discharge Summary ---
Date of Service May 01, 2021 Admission HPI Per Admitting Provider CHIEF COMPLAINT: Abdominal pain. HISTORY OF PRESENT ILLNESS: This is a 51-year-old male with a past medical history significant for allergic rhinitis, diverticulosis of large intestine, adjustment disorder with depression mood, history of renal calculi, history of generalized anxiety disorder, who presents with abdominal pain. The patient was getting treated for diverticulitis since last about 10 days with Cipro and Flagyl. Initially for the first 4 days, he took only half dose and since last 1 week, he has taken full dose, but his abdominal pain is not getting better, he still has 5/10 abdominal pain in the middle and left lower quadrant and yesterday he also noticed air coming out when he was micturating, that is the reason he went again to his family doctor and got a CT scan of the abdomen and pelvis which is showing acute diverticulitis of sigmoid colon with a 2.6 cm peripherally enhancing stool containing structure between and abutting the sigmoid colon and urinary bladder, possibly representing a large inflamed diverticulum or an abscess, also a small amount of air seen in the urinary bladder, which is concerning for a colovesical fistula, marked wall thickening of the superior urinary bladder, which is likely reactive from adjacent diverticulitis. The patient was advised to come to the ER. In the ER, the ER physician spoke with the general surgeon and surgery is going to evaluate in the a.m. and advised to admit to the hospital. Currently, resting comfortably and hemodynamically stable. States today he spiked fever at home and also feeling cold. He is also having diarrhea; whenever he is moving his bowels, he is having painful bowel movements. Denies any blood in stools or black stools. He is micturating a lot, but denies any pain while micturating. He did not notice any blood in the urine. No nausea or vomiting. Appetite is good, eating okay. No difficulty swallowing. No chest pain, no shortness of breath. Has some mild headache. No blurred visions, no earache, no runny nose, no sore throat, no cough. Ambulating okay. Admission Exam Per Admitting Provider GENERAL: The patient is of moderate build, not in acute distress. VITAL SIGNS: Temperature 36.5, pulse 98, respiratory rate 16, blood pressure 148/87, oxygen 96% on room air. HEENT: Pupils equal, round and reactive to light. Oral mucosa moist. NECK: No JVD or neck masses. CARDIOVASCULAR: S1 and S2 heard. Regular rate and rhythm. No murmur, no gallop. RESPIRATORY SYSTEM: Normal AP diameter. No accessory muscle use. No wheezing, no crackles. ABDOMEN: Soft, bowel sounds sluggish. Tenderness of the abdomen in the left lower quadrant and below the umbilical region. Mild guarding, no rigidity, no distention. CENTRAL NERVOUS SYSTEM: Cranial nerves II-XII grossly intact, nonfocal. EXTREMITIES: No edema, no erythema. Principal Diagnosis Abscess of sigmoid colon due to diverticulitis: Acute diverticulitis Adjustment disorder with depression UTI Discharge Exam General- No acute distress Head- atraumatic Eyes- PERRL, EOMI, ENT- oropharynx clear Neck- supple, no JVD Lungs- clear to auscultation Heart- regular rhythm; no murmur Abdomen- normal bowel sounds, soft, non tender Extremities- no calf tenderness Neuro- alert, oriented x 3; PERRL, EOMI; no facial palsy; no dysarthria Skin- warm & dry Discharge Data Allergies Allergy/AdvReac Type Severity Reaction Status Date / Time No Known Allergies Allergy Verified 04/25/21 20:42 Consultations 04/25/21 21:07 ED Decision to Admit Stat 04/26/21 08:00 Consult General Surgery Routine 04/27/21 18:48 Consult Infectious Diseases Routine Ordered Studies 04/28/21 08:28 CT abd pelvis oral and IV con Routine CT abd pelvis oral and IV con CLINICAL HISTORY: Colovesicular Fistula and Diverticulitis TECHNIQUE: Helical axial images of the abdomen and pelvis were obtained and displayed. Automated dose lowering techniques and/or adjustment according to patient size were utilized for this exam. This exam was performed with intravenous contrast. COMPARISON: Comparison is made to CT abdomen pelvis 08/15/2014 FINDINGS: Lower chest: Bibasilar atelectasis versus scarring is seen. Liver: Unremarkable. No focal lesions are seen. Gallbladder and biliary tree: Cholelithiasis is seen without evidence of cholecystitis. No intra- or extrahepatic biliary ductal dilation. Pancreas: Unremarkable, no focal lesions. Spleen: Unremarkable. Adrenals: Unremarkable. Kidneys and ureters: Unremarkable. Bladder: Bladder wall thickening is seen in the superior wall near the site of the fistula. There is a focus of gas in the bladder likely due to bowel connection. Reproductive organs: Unremarkable. Bowel: Diverticulitis is seen in the sigmoid colon. There is a markedly focus of inflammation adjacent to the bowel with a colovesicular fistula seen. The appendix is normal. Lymph nodes Retroperitoneal: Unremarkable. Mesenteric: Unremarkable. Pelvic: Unremarkable. Peritoneum: Normal. Vessels: Unremarkable. Abdominal wall: A fat-containing umbilical hernia is seen. There is a left fat- containing inguinal hernia. Bones: Unremarkable. 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 A focus of gas is seen in the bladder likely secondary to enteric connection. ACT 112: Negative or not required by law. Electronically signed by: Bj Hunter M.D. 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 A focus of gas is seen in the bladder likely secondary to enteric connection. Failed outpatient treatment with flagyl and cipro (but initial 4 days he took only half dose) Surgery on board Continue conservative management Currently on IV Zosyn, will transition to Ertapenem WBC normalized ID on board recommended transition to IV ertapenem or IV rocephin with flagyl for 4 to 6 weeks Tolerated low fiber diet IVF and TPN discontinued Will needfollow-up with colorectal surgery at [facility] Script for Ertapenem given to case management Follow up with ID in 4 weeks Check CBC with diff and CMP weekly while on IV ertapenem Adjustment disorder with depression Continue his home medication of bupropion and Lexapro. UTI Urine cx grew E-Coli IV Zosyn changed to Ertapernem WBC normalized Deep venous thrombosis prophylaxis on Lovenox Code status Full code Total Time Total Time Spent Total Time Spent (In Minutes): 35 minutes Discharge Plan Discharge Items Patient Disposition: Home - Home Health Services Reason For Visit: ABDOMINAL PAIN Discharge Diagnosis: Abscess of sigmoid colon due to diverticulitis Urinary tract infection Activity: Resume your previous activity Non-emergency contact: Primary Care Provider and Surgeon Call non-emergency contact if: you have any medication questions, your symptoms worsen and your temperature is above 101 Follow-up/Referrals: Ra Cuba DO [Primary Care Provider] - 05/08/21 8:40 am (Date & Time 05/08/2021 8:40 AM Provider Mikaela Childers PA-C [facility] Please call if you need to reschedule. ) Ella Ramos MD [Outside Practitioners] - 05/05/21 8:00 am (Date & Time 05/05/2021 8:00 AM Provider Ella Ramos MD Department General Surgery [address] [place] [id number] At the [facility] Entrance, [facility], take Elevator C to the 6th floor which is General Surgery. You are allowed to have one visitor with you for the appointment. Please take a few extra minutes as this is a busy traffic time per the office staff. If you have any questions or need to change the appointment, please call . ) Diet: Low Fiber Addtl Attending Provider Instructions: Follow up with primary care provider on 05/08/2021 @8:40 AM Mikaela Childers PA-C Department [facility] Please call if you need to reschedule. Follow up colorectal surgery on 05/05/2021 @ 8:00 AM Ella Ramos MD Department General Surgery [address] [place] [id number] At the [facility] Entrance, [facility], take Elevator C to the 6th floor which is General Surgery. You are allowed to have one visitor with you for the appointment. Please take a few extra minutes as this is a busy traffic time per the office staff. If you have any questions or need to change the appointment, please call . Follow up with [facility] Infectious disease in 4 weeks Complete the course of antibiotic infusion with Ertapenem Check CBC with diff and CMP weekly while on IV Ertapenem ( Your provider will order) Seek medical attention if your symptoms reoccur or develop any fever Increase potassium intake in your diet Pending Studies at Discharge: No Stand-Alone Forms: [facility], Smoking Cessation Medications and DC Order Prescriptions: New ertapenem 1 gram recon soln 1 g IV DAILY 35 Days RF: 0 potassium chloride 10 mEq capsule, extended release 10 meq PO DAILY Qty: 30 RF: 0 Continued cyanocobalamin (vitamin B-12) [Vitamin B-12] 1,000 mcg Tablet 1,000 mcg PO DAILY RF: 0 ergocalciferol (vitamin D2) [Vitamin D2] 1,250 mcg (50,000 unit) capsule 1,250 mcg PO WK RF: 0 escitalopram oxalate 10 mg tablet 10 mg PO QAM RF: 0 bupropion HCl 300 mg tablet extended release 24 hr 300 mg PO QAM RF: 0 Discontinued metronidazole 500 mg tablet 500 mg PO BID RF: 0 ciprofloxacin HCl 500 mg tablet 500 mg PO BID RF: 0 Discharge Orders: Discharge Order (Routine); Ordered 05/01/21 Ordered By: Sanam Robles Admission Data Admit Date/Time: 04/25/21 21:56 Attending Provider: Sanam Robles Admit Provider: Lai Ferrara Primary Care Provider: Ra Cuba Other Providers: Lai Ferrara ; Ayaz Jiang ; Elier Mackenzie ; Joyce Lara ; Mart West I. ; Karthik Lou II ; Viji Pelayo ; Chidi Acosta ; Ayaz Hendrix ; Francine Elizabeth ; Ghassan Redding ; [facility],Home Healthcare
== END 2021-05-01 17:06 | disposition home health service (06) | DRG 392 ==
LOC: ED 19:40 → 3N 21:56 → SUATTDRO 21:56 → 3N 22:52